=== PATIENT | male | born 1975 | race Native Hawaiian/Other Pacific Islander ===

== ENCOUNTER 2020-06-28 10:58 | Emergency (ER) | payer OTHER ==
[~2020-06-28] VITALS: Ht 182.9 cm; Wt 90.7 kg
[2020-06-28 11:05] VITALS: BP 144/72; TEMP 98.1
== END 2020-06-28 12:36 | disposition home or self-care (01) ==
LOC: ED 10:58
DX: I83.892 Varicose veins of left lower extremity with other complications (principal); S80.811A Abrasion, right lower leg, initial encounter
CPT/HCPCS: 90471; 90715; 96372; 99283

== ENCOUNTER 2020-10-29 16:53 | Emergency (ER) | payer OTHER ==
[~2020-10-29] VITALS: Ht 185.4 cm; Wt 97.5 kg
[2020-10-29 17:00] VITALS: TEMP 97
[2020-10-29 18:15] VITALS: BP 118/68
== END 2020-10-29 18:32 | disposition home or self-care (01) ==
LOC: ED 16:53
PROC: 2W3QX1Z Immobilization of Right Lower Leg using Splint (ICD-10-PCS; principal; 2020-10-29)
DX: S82.61XA Displaced fracture of lateral malleolus of right fibula, initial encounter for closed fracture (principal); X50.1XXA Overexertion from prolonged static or awkward postures, initial encounter; Y92.89 Other specified places as the place of occurrence of the external cause
CPT/HCPCS: 99283

== ENCOUNTER 2021-10-21 15:25 | Emergency (ER) | payer OTHER ==
[~2021-10-21] VITALS: Ht 185.4 cm; Wt 97.5 kg
[2021-10-21 15:44] LABS: PLATELET COUNT 330 K/uL (142-355)
[2021-10-21 16:15] LABS: POTASSIUM 3.9 mmol/L (3.6-5.2)
[2021-10-21 16:21] LABS: PARTIAL THROMBOPLASTIN TIME 26.1 SECONDS (24.5-33.6)
[2021-10-21 18:00] VITALS: BP 114/66; TEMP 97.5
== END 2021-10-21 18:20 | disposition short-term general hospital (02) ==
LOC: ED 15:25
PROVIDERS: Hospitalist
PROC: 0T9B70Z Drainage of Bladder with Drainage Device, Via Natural or Artificial Opening (ICD-10-PCS; principal; 2021-10-21)
PROC: 0BH17EZ Insertion of Endotracheal Airway into Trachea, Via Natural or Artificial Opening (ICD-10-PCS; 2021-10-21)
PROC: 5A1935Z Respiratory Ventilation, Less than 24 Consecutive Hours (ICD-10-PCS; 2021-10-21)
PROC: 5A12012 Performance of Cardiac Output, Single, Manual (ICD-10-PCS; 2021-10-21)
PROC: 0D9670Z Drainage of Stomach with Drainage Device, Via Natural or Artificial Opening (ICD-10-PCS; 2021-10-21)
DX: A41.9 Sepsis, unspecified organism (principal); R06.03 Acute respiratory distress; R40.4 Transient alteration of awareness; Z11.52 Encounter for screening for COVID-19
CPT/HCPCS: 31500; 36415; 36600; 43754; 51702; 80053; 80307; 80320; 81000; 82550; 82805; 82948; 83605; 83880; 84484; 85027; 85610; 85730; 87040; 87635; 92950; 93005; 94002; 96360; 96361; 96365; 96366; 96375; 96376; 99285; 99291; J0171; J1100; J2250; J2310; J2543; J3370; U0003

== ENCOUNTER 2022-09-06 16:29 | Emergency (ER) | payer OTHER ==
[~2022-09-06] VITALS: Ht 185.4 cm; Wt 97.5 kg
[2022-09-06 17:50] VITALS: BP 130/85; TEMP 98.2
== END 2022-09-06 17:55 | disposition home or self-care (01) ==
LOC: ED 16:29
DX: M79.672 Pain in left foot (principal); L03.116 Cellulitis of left lower limb
CPT/HCPCS: 84550; 99283

== ENCOUNTER 2022-09-26 08:20 | Emergency (ER) | payer OTHER ==
[~2022-09-26] VITALS: Ht 182.9 cm; Wt 97.5 kg
[2022-09-26 09:15] LABS: PLATELET COUNT 209 K/uL (142-355)
[2022-09-26 09:16] LABS: POTASSIUM 3.7 mmol/L (3.6-5.2)
[2022-09-26 09:39] VITALS: BP 141/99; TEMP 98.6
== END 2022-09-26 09:40 | disposition home or self-care (01) ==
LOC: ED 08:20
PROVIDERS: Emergency Medicine
DX: S92.332A Displaced fracture of third metatarsal bone, left foot, initial encounter for closed fracture (principal); I10 Essential (primary) hypertension; X58.XXXA Exposure to other specified factors, initial encounter; Y92.89 Other specified places as the place of occurrence of the external cause; F17.210 Nicotine dependence, cigarettes, uncomplicated
CPT/HCPCS: 80048; 84550; 85027; 96372; 99283; J1885